=== PATIENT | female | born 1970 | race Caucasian/White ===

== ENCOUNTER → 2020-01-10 13:30 | Outpatient (CLI) | payer BC, SELFPAY ==
--- NOTE | ~2020-01-10 | XR_ITS ---
EXAMINATION: XR chest 2V EXAM DATE: 01/10/2020 13:43 INDICATION: Cough without fever. TECHNIQUE: Frontal and lateral projections of the chest obtained and reviewed. Comparison is made to prior examination from 10/09/2019. FINDINGS: Mild to moderate hyperinflation. The lungs are clear. There are no pleural effusions. The cardiomediastinal silhouette is within normal limits. There is no pneumothorax suspected. The bone s and soft tissues are unremarkable. There is no significant interval change. IMPRESSION: No acute cardiopulmonary findings. Reviewed, dictated and finalized at location A.
== END ==
PROVIDERS: PCP Family Medicine; Visit Provider Nurse Practitioner Family
DX: R05 Cough (principal)
CPT/HCPCS: 71046

== ENCOUNTER 2020-01-29 08:27 | Outpatient (CLI) | payer BC, SELFPAY ==
--- NOTE | 2020-01-29 13:33 | WPDPFTINT ---
PFT Interpretation PFT Interpretation: DOS: 01/29/2020 REQUESTING: Augusto Monterroso NP REASON FOR TESTING: Hyperinflation PULMONARY FUNCTION TESTS Results are reproducible. Spirometry: Normal FEV1 104% predicted, normal FVC 102% predicted, and normal FEV1%. No change with bronchodilator. Lung volumes: Total lung capacity normal, 93% predicted. Normal residual volume, 76%. RV/TLC 30%, normal. Airway resistance is increased at 235%. Diffusion: DLCO is 110%, normal. Flow volume loop: Normal. IMPRESSION: Normal pulmonary function tests with increase in airway resistance, which may or may not be clinically significant. Gricel Deng MD
== END 2020-01-29 08:28 | disposition home or self-care (01) ==
PROVIDERS: PCP Family Medicine; Visit Provider Nurse Practitioner Family
DX: R05 Cough (principal); R09.89 Other specified symptoms and signs involving the circulatory and respiratory systems
CPT/HCPCS: 94060; 94726; 94729

== ENCOUNTER 2020-02-02 07:52 | Outpatient (CLI) | payer BC, SELFPAY ==
--- NOTE | 2020-02-02 07:59 | ECG_ITS ---
Measurements Intervals [place] Rate: 72 P: 73 CA: 177 QRS: 3 QRSD: 89 T: 62 QT: 371 QTc: 408 Interpretive Statements SINUS RHYTHM POSSIBLE LEFT ATRIAL ENLARGEMENT INCOMPLETE RIGHT BUNDLE BRANCH BLOCK BORDERLINE ECG Electronically Signed On 02-02-2020 8:24:08 CDT by Lenny Matos D.O.
== END 2020-02-02 07:53 | disposition home or self-care (01) ==
PROVIDERS: PCP Family Medicine; Visit Provider Nurse Practitioner Family
DX: R07.89 Other chest pain (principal); I45.10 Unspecified right bundle-branch block
CPT/HCPCS: 93005

== ENCOUNTER 2020-02-09 08:34 | Outpatient (CLI) | payer BC, SELFPAY ==
--- NOTE | 2020-02-09 08:44 | ECHO_ITS ---
Patient Info Name: Ashtyn Mcmullen Age: 49 years : 1970 Gender: Female Ht: 73 in Wt: 160 lbs BSA: 1.93 m2 HR: 77 bpm BP: 125 / 73 mmHg Technical Quality: Good Exam Date: 02/09/2020 8:52 AM Exam Location: [facility] Patient Status: Outpatient Admit Date: 02/09/2020 Staff Ordering Physician: Amber Gutierrez NP Airport Baggage Screener: Nemo Warner RDCS Attending Provider: Augusto Monterroso NP Referring Physician: Brenda WELSH; Exam Type: CA echo doppler color flow Study Info Indications R94.31 - Abnormal electrocardiogram ECG EKG Complete two-dimensional, color flow and Doppler transthoracic echocardiogram is performed. Summary 1. Left ventricular chamber dimension is normal. 2. Left ventricular systolic function is normal, estimated at 60-65%. 3. The left ventricular diastolic function is normal. 4. E/e' 9 is minimally elevated. 5. No pulmonary hypertension, estimated pulmonary arterial systolic pressure is 28 mmHg. 6. There is trace pulmonic regurgitation. Left Ventricle E/e' 9 is minimally elevated. Left ventricular chamber dimension is normal. Left ventricular systolic function is normal, estimated at 60-65%. The left ventricular diastolic function is normal. Right Ventricle Right ventricular chamber dimension is normal. Right ventricular systolic function is normal. Left Atria Left atrial chamber dimension is normal. Right Atria Right atrial chamber dimension is normal. Aortic Valve The aortic valve is trileaflet. There is no aortic valve stenosis. There is no aortic valve regurgitation. Pulmonic Valve There is trace pulmonic regurgitation. Mitral Valve There is no mitral valve stenosis. There is no mitral valve regurgitation. Tricuspid Valve There is no tricuspid valve regurgitation. No pulmonary hypertension, estimated pulmonary arterial systolic pressure is 28 mmHg. Pericardium/Pleural There is no pericardial effusion. Inferior Vena Cava Normal inferior vena cava with >50% collapse upon inspiration consistent with normal right atrial pressure, 5 mmHg. Aorta The aortic root size at the sinus of Valsalva is normal. Left Ventricular Outflow Tract Name Value Normal LVOT 2D LVOT Diameter 1.9 cm LVOT Doppler LVOT Peak Velocity 110 cm/s LVOT Peak Gradient 5 mmHg LVOT Mean Gradient 3 mmHg LVOT VTI 24 cm LVOT VTI/AV VTI Ratio 1.0 LVOT Stroke Volume 67 ml LVOT CO 4.8 l/min LVOT CI 2.5 l/min/m2 Pulmonic Valve Name Value Normal RVOT Doppler RVOT Peak Gradient 3 mmHg PV Doppler
--- NOTE | 2020-02-09 08:44 | EST_ITS ---
Patient Info Name: Ashtyn Mcmullen Age: 49 years : 1970 Gender: Female Ht: 73 in Wt: 160 lbs BSA: 1.93 m2 Exam Date: 02/09/2020 9:16 AM Exam Location: [facility] Patient Status: Outpatient Admit Date: 02/09/2020 Staff Ordering Physician: Amber Gutierrez NP Attending Provider: Augusto Monterroso NP Exercise Technologist: eNmo Warner RDCS Exercise Physician: Lenny Matos DO Exam Type: CA stress test treadmill Study Info Indications R94.31 - Abnormal electrocardiogram ECG EKG A treadmill exercise stress test was performed. Summary 1. 1. Negative Konrad exercise stress test for ischemic ST changes by ECG criteria. 2. 2. Good functional capacity, achieving 10 METs of workload. 3. 3. Appropriate HR response to exercise. 4. 4. Appropriate HR recovery at 1 minute post exercise. 5. 5. No imaging with stress testing. 6. 6. Patient informed of the above results. Protocol: Konrad Stress ECG Details Stage: REST Duration (min): 3 min : 15 sec Speed (mph): 0.0 Grade (%): 0 HR (bpm): 72 SBP (mmHg): 125 DBP (mmHg): 73 METS: --- Stage: REST Duration (min): 13 min : 27 sec Speed (mph): 0.0 Grade (%): 0 HR (bpm): 76 SBP (mmHg): 125 DBP (mmHg): 73 METS: --- Stage: STAGE 1 Duration (min): 1 min : 0 sec Speed (mph): 1.7 Grade (%): 10 HR (bpm): 103 SBP (mmHg): 125 DBP (mmHg): 73 METS: --- Stage: STAGE 1 Duration (min): 2 min : 0 sec Speed (mph): 1.7 Grade (%): 10 HR (bpm): 112 SBP (mmHg): 125 DBP (mmHg): 73 METS: --- Stage: STAGE 1 Duration (min): 3 min : 0 sec Speed (mph): 1.7 Grade (%): 10 HR (bpm): 111 SBP (mmHg): 165 DBP (mmHg): 81 METS: --- Stage: STAGE 2 Duration (min): 1 min : 0 sec Speed (mph): 2.5 Grade (%): 12 HR (bpm): 123 SBP (mmHg): 165 DBP (mmHg): 81 METS: --- Stage: STAGE 2 Duration (min): 2 min : 0 sec Speed (mph): 2.5 Grade (%): 12 HR (bpm): 124 SBP (mmHg): 187 DBP (mmHg): 81 METS: --- Stage: STAGE 2 Duration (min): 3 min : 0 sec Speed (mph): 2.5 Grade (%): 12 HR (bpm): 126 SBP (mmHg): 187 DBP (mmHg): 81 METS: --- Stage: STAGE 3 Duration (min): 1 min : 0 sec Speed (mph): 3.4 Grade (%): 14 HR (bpm): 141 SBP (mmHg): 192 DBP (mmHg): 86 METS: --- Stage: STAGE 3 Duration (min): 2 min : 0 sec Speed (mph): 3.4 Grade (%): 14 HR (bpm): 147 SBP (mmHg): 192 DBP (mmHg): 86 METS: --- Stage: STAGE 3 Duration (min): 3 min : 0 sec Speed (mph): 3.4 Grade (%): 14 HR (bpm): 152 SBP (mmHg): 185 DBP (mmHg): 84 METS: --- Stage: RECOVERY Duration (min): 0 min : 59 sec Speed (mph): 0.0 Grade (%): 0 HR (bpm): 123 SBP (mmHg): 196 DBP (mmHg): 81 METS: --- Stage: RECOVERY Duration (min): 1 min
== END 2020-02-09 08:35 | disposition home or self-care (01) ==
PROVIDERS: PCP Family Medicine; Visit Provider Nurse Practitioner Family
DX: R94.31 Abnormal electrocardiogram [ECG] [EKG] (principal)
CPT/HCPCS: 93017; 93306

== ENCOUNTER 2020-03-28 09:17 | Emergency (ER) | payer BC, SELFPAY ==
[2020-03-28 09:36] VITALS: BP 137/89; PULSE 76; RESP 16; TEMP 37.2; O2SAT 99
--- NOTE | 2020-03-28 09:37 | ED.GENADULT ---
HPI - General Adult General Chief complaint: Wound/Laceration Stated complaint: laceration left thumb Time Seen by Provider: 03/28/20 09:43 Source: patient and RN notes reviewed Mode of arrival: ambulatory Limitations: no limitations History of Present Illness HPI narrative: 49-year-old female present with complaints of laceration to 1st (thumb) finger on left hand, caused by a piece of landscape glass from a bulb that busted in her hand 12 hours ago. Cleaned area and applied pressure, unable to control bleeding this morning. Denies focal weakness, altered sensation, and rash. RIGHT HAND is dominant hand. Denies pain, numbness or tingling, or loss of mobility. No foreign body sensation. Tetanus up-to-date. Post menopausal. The patient reports she have not been diagnosed with COVID-19. The patient reports she is not waiting for the results of a COVID-19 lab test. The patient reports she do not have fever, chills, weakness, fatigue, myalgia, or facial swelling. The patient reports she do not have a new or worsening cough or shortness of breath. Denies chest pain. The patient reports she do not have any rhinorrhea, congestion, sore throat, nausea, vomiting, abdominal pain, and diarrhea. Tolerating po intake well. Denies recent traveling. Denies concerns for COVID-19 or exposures been home since [id number] order except for essential household needs and return home. At this time, patient is not suspected of having COVID-19. Some parts of this dictation were generated by voice recognition software and may contain typographical and/or grammatical inaccuracies Related Data Home Medications Medication Instructions Recorded Confirmed estradiol 1 mg PO DAILY 03/28/20 03/28/20 medroxyprogesterone 1 mg PO DAILY 03/28/20 03/28/20 Allergies Allergy/AdvReac Type Severity Reaction Status Date / Time No Known Allergies Allergy Verified 03/28/20 09:45 Review of Systems Review of Systems: Narrative: CONSTITUTIONAL: Denies fever, chills, sweats. EYES: Denies visual changes, redness, discharge. ENT: Denies rhinorrhea, congestion, sore throat, otalgia. CARDIOVASCULAR: Denies chest pain, palpitations, edema. RESPIRATORY: Denies dyspnea, wheezing, cough. GASTROINTESTINAL: Denies abdominal pain, nausea, vomiting, or diarrhea. GENITOURINARY: Denies dysuria, hematuria, abnormal discharge. SKIN: Denies rash or itching. Complains of laceration to 1st (thumb) finger on left hand. MUSCULOSKELETAL: Denies acute back pain, joint pain, or myalgia. NEUROLOGIC: Denies numbness or focal weakness. PSYCHIATRIC: Denies anxiety or depression. All other systems reviewed & are unremarkable except as noted in HPI and below. [facility] Past Medical History Medical History (Updated 03/29/20 @ 00:01 by Lesley Mueller) Hx of migraines Lateral epicondylitis Sinusitis Toe fracture, left Surgical History Surgical History History of tonsillectomy Family History Family History Grandparent Family history of heart disease in male family member before age 55 Other Diabetes mellitus Social History Social History (Updated 03/28/20 @ 10:17 by ARRON Bonds) Smoking status: Former smoker Tobacco type: cigarettes Second hand tobacco smoke exposure: No Additional smoking assessment comments: Smoked for approximately a year while in high school per Ashtyn Alcohol intake: current Substance use: never Living arrangements: with family Occupation/Education: occupation Gender identity (if verbalized by the patient): Female Comments At time of signature, agree with nurse past medical, surgical, social, and family history. There is no relevant family history pertinent to the presenting complaint. Exam Narrative: Exam Narrative: GENERAL: This is a well-nourished, well-developed patient, in no apparent distres
== END 2020-03-28 10:25 | disposition home or self-care (01) ==
PROVIDERS: Emergency Provider Nurse Practitioner Family; PCP Family Medicine
DX: S61.012A Laceration without foreign body of left thumb without damage to nail, initial encounter (principal); Z87.891 Personal history of nicotine dependence; W25.XXXA Contact with sharp glass, initial encounter
CPT/HCPCS: 12001; 99213; G0463

== ENCOUNTER 2021-08-07 07:44 | Emergency (ER) | payer BC, SELFPAY ==
--- NOTE | ~2021-08-07 | XR_ITS ---
EXAMINATION: XR chest 2V EXAM DATE: 08/07/2021 08:34 INDICATION: Chest pain. TECHNIQUE: Frontal and lateral projections of the chest obtained and reviewed. Comparison is made to prior examination from 01/10/2020. FINDINGS: Mild hyperinflation. The lungs are clear. There are no pleural effusions. The cardiomedia stinal silhouette is within normal limits. There is no pneumothorax suspected. The bones and soft t issues are unremarkable. IMPRESSION: Mild hyperinflation. No acute cardiopulmonary findings. Reviewed, dictated and finalized at location A.
--- NOTE | 2021-08-07 08:04 | ECG_ITS ---
Measurements Intervals [place] Rate: 75 P: -16 CT: 181 QRS: -9 QRSD: 89 T: 52 QT: 357 QTc: 401 Interpretive Statements SINUS RHYTHM INCOMPLETE RIGHT BUNDLE BRANCH BLOCK BASELINE WANDER- AVF BORDERLINE ECG Electronically Signed On 08-07-2021 8:35:24 CDT by Lenny Matos D.O.
[2021-08-07 08:12] VITALS: BP 138/92; RESP 12; O2SAT 97
[2021-08-07 08:16] VITALS: PULSE 71
--- NOTE | 2021-08-07 08:23 | PC.NURSE ---
pt. to Xray
[2021-08-07 08:38] LABS: INR 0.9; Prothrombin Time 12.3 Seconds (11.1-14.7)
[2021-08-07 08:39] LABS: Partial Thromboplastin Time 26.4 SECONDS (22.3-36.8)
[2021-08-07] MEDS: ASPIRIN 81 MG CHEWABLE TABLET 324 MG PO (08:40)
[2021-08-07 08:48] LABS: Anion Gap 9 mmol/L (8-16); Blood Urea Nitrogen 12 mg/dL (7-17); Calcium 8.5 mg/dL (8.4-10.2); Carbon Dioxide 24 mmol/L (22-30); Chloride 108 mmol/L (98-107); Estimated CRCL calculation 73 ml/min; Estimated Glomerular Filt Rate > 60; Glucose 82 mg/dL (65-110); Potassium 3.9 mmol/L (3.4-5.0); Sodium 141 mmol/L (137-145)
[2021-08-07 08:49] LABS: Basophils Percent Auto 0.4 % (0.2-1.2); Eosinophils Absolute Auto 0.1 K/mm3 (0-0.3); Eosinophils Percent Auto 2.8 % (0-4.4); Hematocrit 41.8 % (37.0-47.0); Lymphocytes Absolute Auto 1.21 K/mm3 (0.9-3.2); Lymphocytes Percent Auto 43.1 % (18.3-44.2); Mean Corpuscular HGB Conc 33.5 g/dl (32-36); Mean Corpuscular Hemoglobin 30.4 pg (26-34); Mean Corpuscular Volume 90.9 fl (80-100); Mean Platelet Volume 10.9 fl (7.4-10.4); Monocytes Absolute Auto 0.3 K/mm3 (0.1-0.6); Monocytes Percent Auto 12.1 % (2.6-8.5); Neutrophils Absolute Auto 1.2 K/mm3 (1.3-6.7); Neutrophils Percent Auto 41.6 % (45.5-73.1); Platelet Count Result 148 k/mm3 (150-375); Red Cell Distribution Width 12.1 % (11.5-14.5); White Blood Count 2.8 K/mm3 (4.5-10.0)
--- NOTE | 2021-08-07 08:55 | ED.CHESTPAIN ---
HPI - Chest Pain General Chief Complaint: Chest Pain Stated Complaint: chest tightness Time Seen by Provider: 08/07/21 08:06 Source: patient History of Present Illness HPI narrative: Patient presents with chest pain. She reports has had chest pain for approximately 1 week she discussed her symptoms with her friends and they recommend she come in to be evaluated. Her pain is achy, constant, no clear aggravating or alleviating factors. She reports shortness of breath described as difficulty taking a deep breath she denies nausea or vomiting she denies diaphoresis. She denies any radiation of her pain. Her pain is primarily around her sternum. She denies any recent hospitalizations, recent travel, prior history of blood clots. Related Data Home Medications Medication Instructions Recorded Confirmed estradiol 1 mg PO DAILY 03/28/20 03/31/21 medroxyprogesterone 1 mg PO DAILY 03/28/20 03/31/21 Allergies Allergy/AdvReac Type Severity Reaction Status Date / Time No Known Allergies Allergy Verified 10/01/20 16:07 [facility] Past Medical History Medical History (Updated 08/07/21 @ 11:13 by Phil Hamlin MD) BMI 21.0-21.9, adult Hearing loss Hx of migraines Lateral epicondylitis Sinusitis Toe fracture, left Surgical History Surgical History History of tonsillectomy Family History Family History Grandparent Family history of heart disease in male family member before age 55 Father , MVC No problems noted. Mother Hypertension Pacemaker Sibling No problems noted. Other Diabetes mellitus Social History Social History Tobacco type: cigarettes Second hand tobacco smoke exposure: No Additional smoking assessment comments: Smoked for approximately a year while in high school per Ashtyn Alcohol intake: current Substance use: never Gender identity (if verbalized by the patient): Female Course Reevaluation(s) Reevaluation #1: Patient reports feeling improved, labs reviewed patient comfortable with outpatient plan. Date: 08/07/21 Time: 11:06 Vital Signs Vital signs: Vital Signs Respiratory Rate 12 08/07/21 08:12 Blood Pressure 138/92 H 08/07/21 08:12 Pulse Oximetry 97 08/07/21 08:12 Pulse Rate 64 08/07/21 11:28 Respiratory Rate 12 08/07/21 11:28 Blood Pressure 123/106 H 08/07/21 11:28 Pulse Oximetry 100 08/07/21 11:28 MDM - Chest Pain MDM Narrative Medical decision making narrative: H&P as above, vss, pt looks clinically well, exam reassuring, labs with low WBCs otherwise clinically unremarkable with a negative troponin given and 1 week of consistent symptoms, img unremarkable, additional labs/img considered, symptomatic relief available as needed, on reevaluation pt continues to looks clinically well. Suspect chest wall pain, dns ACS, severe sepsis, PE, dissection. plan to tx/monitor as op w/ pcm f/u findings/plan discussed with pt, pt agree/comfortable with plan, return precautions given Medical Records Data Medical records narrative: Impressions Chest X-Ray 08/07/21 08:41 IMPRESSION: Mild hyperinflation. No acute cardiopulmonary findings. Lab Data Result diagrams: 08/07/21 08:18 08/07/21 08:18 Labs: Lab Results 08/07/21 08/07/21 08/07/21 Range/Units 08:18 08:18 08:18 WBC 2.8 L (4.5-10.0) K/mm3 RBC 4.60 (4.2-5.4) M/mm3 Hgb 14.0 (12.0-15.0) g/dL Hct 41.8 (37.0-47.0) % MCV 90.9 (80-100) fl MCH 30.4 (26-34) pg MCHC 33.5 (32-36) g/dl RDW 12.1 (11.5-14.5) % Plt Count 148 L (150-375) k/mm3 MPV 10.9 H (7.4-10.4) fl Immature Gran % (Auto) 0.0 (0-0.5) % Neut % (Auto) 41.6 L (45.5-73.1) % Lymph % (Auto) 43.1 (18.3-44.2) % Rogers % (Auto) 12.1 H (2.6-8.5) %
[2021-08-07 08:58] LABS: Troponin I < 0.012 ng/mL (0.000-0.034)
[2021-08-07 09:00] VITALS: BP 134/97; PULSE 66; RESP 14; O2SAT 98
[2021-08-07 10:00] VITALS: BP 140/100; PULSE 66; PULSE 68; RESP 14; O2SAT 98
[2021-08-07 10:27] LABS: D Dimer 0.27 ug/mL (<0.48)
[2021-08-07 11:28] VITALS: BP 123/106; PULSE 64; RESP 12; O2SAT 100
--- NOTE | 2021-08-20 11:18 | PC.NURSE ---
LATE ENTRY This note is being entered to document information to the patient's record. The following information was omitted on [08/07/2021], by [Jaylyn Denson RN]. Stop time for Acetaminophen IVPB was 1130am.
== END 2021-08-07 11:29 | disposition home or self-care (01) ==
PROVIDERS: Emergency Provider Emergency Medicine; PCP Family Medicine
DX: R07.9 Chest pain, unspecified (principal); I45.10 Unspecified right bundle-branch block
CPT/HCPCS: 36415; 71046; 80048; 84484; 85025; 85380; 85610; 85730; 93005; 96365; 99284; A9270; J0131

== ENCOUNTER → 2022-09-25 08:00 | Outpatient (CLI) | payer OTHER, SELFPAY ==
--- NOTE | ~2022-09-25 | XR_ITS ---
XR chest 2V DATE: 09/25/2022 08:13 INDICATION: Cough and shortness of breath for 5 days TECHNIQUE: 2 views COMPARISON: 08/07/2021 2 view chest FINDINGS: Bilateral hyperinflation. No pulmonary infiltrate or consolidation, pleural effusion or pul monary vascular congestion or pneumothorax is detected. Normal heart size. No hilar or mediastinal enlargement. Included skeletal structures are unremarkable . IMPRESSION: Bilateral hyperinflation suggesting obstructive airways disease No active cardiopulmonary disease Reviewed, dictated and finalized at location B. TIME ANALYST
== END ==
PROVIDERS: PCP Family Medicine; Visit Provider Nurse Practitioner Family
DX: R05.9 Cough, unspecified (principal); R06.02 Shortness of breath; R91.8 Other nonspecific abnormal finding of lung field
CPT/HCPCS: 71046

== ENCOUNTER → 2023-01-29 11:34 | Outpatient (CLI) | payer OTHER, SELFPAY ==
--- NOTE | ~2023-01-29 | XR_ITS ---
XR hip BI 2V w AP pelvis DATE: 01/29/2023 11:59 INDICATION: Bilateral hip pain TECHNIQUE: AP pelvis. AP and lateral views of each hip. COMPARISON: None FINDINGS: No pelvic fracture or bone destruction is detected. The pubic symphysis and sacroiliac join ts are intact. Hip joint spaces are symmetric and relatively preserved. There is minimal spurring of both femoral he ads consistent with mild bilateral hip osteoarthritis. No fracture or dislocation, avascular necrosis or bone destruction of either hip is detected. IMPRESSION: Mild bilateral hip osteoarthritis Reviewed, dictated and finalized at location A.
== END ==
PROVIDERS: PCP Family Medicine; Visit Provider Physician Assistant Medical
DX: M16.0 Bilateral primary osteoarthritis of hip (principal)
CPT/HCPCS: 73521

== ENCOUNTER 2023-12-05 10:13 | Emergency (ER) | payer OTHER, SELFPAY ==
[2023-12-05 10:17] VITALS: BP 168/90; PULSE 96; RESP 18; TEMP 36.8; O2SAT 100
[2023-12-05 10:57] VITALS: O2SAT 98
[2023-12-05 11:09] LABS: Influenza A QL RT-PCR Negative (Negative); Influenza B QL RT-PCR Negative (Negative); RSV RNA, RT-PCR Negative (Negative); SARS-CoV-2 RNA PCR Positive (Negative)
[2023-12-05 11:37] VITALS: BP 151/93; PULSE 88; RESP 18; O2SAT 98
--- NOTE | 2023-12-05 11:45 | ED.URI ---
HPI - URI/Sore Throat General Chief Complaint: Upper Respiratory Infection Stated Complaint: Congestion Time Seen by Provider: 12/05/23 10:37 Source: patient Mode of arrival: ambulatory Limitations: no limitations History of Present Illness HPI Narrative: This is a 53-year-old female that presents to the emergency department for cold symptoms present over the last 3 days. Reports cough, congestion, and headache. Reports history of migraines. She is COVID vaccinated. Denies fevers or shortness of breath. Related Data Home Medications Medication Instructions Recorded Confirmed estradiol 2 mg tablet 1 mg PO DAILY 03/28/20 12/05/23 medroxyprogesterone 2.5 mg tablet 1 mg PO DAILY 03/28/20 12/05/23 Allergies Allergy/AdvReac Type Severity Reaction Status Date / Time No Known Allergies Allergy Verified 12/05/23 10:59 Review of Systems Review of Systems: CONSTITUTIONAL: Denies fever ENT: Reports rhinorrhea, congestion RESPIRATORY: Reports cough. Denies dyspnea. All systems reviewed & are unremarkable except as noted in HPI and below PMFSH Past Medical History Medical History BMI 21.0-21.9, adult Hearing loss Hx of migraines Lateral epicondylitis Raynaud's disease Sinusitis Toe fracture, left Surgical History Surgical History History of tonsillectomy Family History Family History Grandparent Family history of heart disease in male family member before age 55 Father , MVC No problems noted. Mother Hypertension Pacemaker Sibling No problems noted. Other Diabetes mellitus Social History Social History Smoking status: Never smoker Tobacco type: cigarettes Second hand tobacco smoke exposure: No Additional smoking assessment comments: Smoked for approximately a year while in high school per Ashtyn Alcohol intake: current Substance use: never Substance use type: does not use Living arrangements: with family Occupation/Education: occupation Additional occupation/education comments: teacher-[employer] Gender identity (if verbalized by the patient): Female Exam Narrative: GENERAL: Well-appearing, well-nourished, and in no acute distress. HEAD: Normocephalic, atraumatic. EYES: PERRLA and EOMI. ENT: Nares clear, no rhinorrhea or epistaxis. Mucous membranes moist. Oropharynx without tonsillar hypertrophy exudate or other lesions. Bilateral TMs pearly donaldson non-bulging NECK: Supple. No adenopathy or masses. CHEST: Clear to auscultation. No respiratory distress. No wheezes rales or rhonchi HEART: Regular rate and rhythm. No murmur heard. Normal peripheral pulses. EXTREMITIES: Normal range of motion. No edema. SKIN: Warm, dry, no rash. NEURO: No focal deficits. Alert and oriented x3. PSYCH: Normal mood and affect Course Course Emergency Course: Patient agrees with plan of care Vital Signs Vital signs: Vital Signs Temperature 98.2 F 12/05/23 10:17 Pulse Rate 96 12/05/23 10:17 Respiratory Rate 18 12/05/23 10:17 Blood Pressure 168/90 H 12/05/23 10:17 Pulse Oximetry 100 12/05/23 10:17 Oxygen Delivery Room Air 12/05/23 10:17 Temperature 98.2 F 12/05/23 10:17 Pulse Rate 88 12/05/23 11:37 Respiratory Rate 18 12/05/23 11:37 Blood Pressure 151/93 H 12/05/23 11:37 Pulse Oximetry 98 12/05/23 11:37 Oxygen Delivery Room Air 12/05/23 10:57 MDM - URI/Sore Throat MDM Narrative Medical decision making narrative: Patient presents to the emergency department for cold symptoms present over the last couple of days. She is afebrile and nontoxic appearing. Oxygen saturation is normal on room air. Lungs are clear on exam. Patient is COVID positive today. No concerning findings on her blood
[2023-12-05] MEDS: ACETAMINOPHEN 500 MG TABLET 1000 MG PO (11:51)
[2023-12-05] MEDS: METOCLOPRAMIDE HCL 10 MG TABLET PO (11:51)
[2023-12-05] MEDS: diphenhydrAMINE HCl CAP 25 MG CAPSULE PO (11:51)
[2023-12-05] MEDS: KETOROLAC 30 MG/ML VIAL (*BKC) IM (11:51)
[2023-12-05 12:12] LABS: Basophils Percent Auto 0.3 % (0.2-1.2); Eosinophils Percent Auto 0.3 % (0-4.4); Hematocrit 44.2 % (37.0-47.0); Hemoglobin 14.9 g/dL (12.0-15.0); Lymphocytes Percent Auto 20.9 % (18.3-44.2); Mean Corpuscular HGB Conc 33.7 g/dl (32-36); Mean Corpuscular Volume 89.1 fl (80-100); Mean Platelet Volume 10.1 fl (7.4-10.4); Monocytes Absolute Auto 0.4 K/mm3 (0.1-0.6); Monocytes Percent Auto 11.6 % (2.6-8.5); Neutrophils Absolute Auto 2.2 K/mm3 (1.3-6.7); Neutrophils Percent Auto 66.9 % (45.5-73.1); Platelet Count Result 128 k/mm3 (150-375); Red Blood Count 4.96 M/mm3 (4.2-5.4); Red Cell Distribution Width 11.9 % (11.5-14.5); White Blood Count 3.4 K/mm3 (4.5-10.0)
[2023-12-05 12:20] LABS: Alanine Aminotransferase 15 U/L (6-35); Albumin Level 4.5 g/dL (3.5-5.1); Alkaline Phosphatase 81 U/L (38-126); Anion Gap 7 mmol/L (8-16); Aspartate Amino Transferase 32 U/L (14-36); Bilirubin,Total 1.1 mg/dL (0.2-1.3); Blood Urea Nitrogen 11 mg/dL (7-17); Calcium 8.6 mg/dL (8.4-10.2); Carbon Dioxide 27 mmol/L (22-30); Chloride 105 mmol/L (98-107); Estimated Glomerular Filt Rate > 60; Glucose 92 mg/dL (65-110); Potassium 3.9 mmol/L (3.4-5.0); Sodium 139 mmol/L (137-145)
== END 2023-12-05 13:06 | disposition home or self-care (01) ==
PROVIDERS: Emergency Medicine; Emergency Provider Physician Assistant; PCP Family Medicine
DX: U07.1 COVID-19 (principal); I73.00 Raynaud's syndrome without gangrene; Z87.891 Personal history of nicotine dependence
CPT/HCPCS: 36415; 80053; 85025; 87637; 96372; 99283; A9270; J1885

== ENCOUNTER 2025-01-07 | Emergency (ER) | payer BC, SELFPAY ==
--- OUTSIDE RECORDS SUMMARY | 2025-01-07 00:03 | XMS_ITS | Clinical Summary ---
Author Organization [facility] [employer] Address [address] [place] [address] Care Team Providers Care Telecommunications Project Manager Name Role Phone Matthew Obando MD Primary Care Provider [phone] Source Comments [facility] [employer],non-owned Affiliates and Associated Physician Practices is amultiple site organization consisting of ambulatory clinics and hospital sitesin [place], [place], [place] and [place]. This disclosure is being madepursuant to the Care Everywhere program and may not contain all information available regarding this patient. Last updated 18.[employer] Allergies No known active allergies Medications * Be aware that medications may not be up to date on this document. Alwaysverify current medications with the patient. Medication Sig Dispensed Refills Start Date End Date Status ESTRADIOL PO Active PROGESTERONE PO Active benzonatate (TESSALON) 200 MG capsule Take 1 capsule by mouth 3 times daily as needed for Cough 30 capsule 12/20/2019 Active Social History Tobacco Use Types Packs/Day Years Used Date Smoking Tobacco: Never Smokeless Tobacco: Never Sex and Gender Information Value Date Recorded Sex Assigned at Not on file Gender Identity Not on file Sexual Orientation Not on file Last Filed Vital Signs Vital Sign Reading Time Taken Comments Blood Pressure 128/86 12/20/2019 4:[address] CLEANER Pulse 87 12/20/2019 4:[address] CLEANER Temperature 36.9 C (98.5 F) 12/20/2019 4:[address] CLEANER Respiratory Rate 16 12/20/2019 4:[address] CLEANER Oxygen Saturation 98% 12/20/2019 4:[address] CLEANER Inhaled Oxygen Concentration - - Weight 72.6 kg (160 lb) 12/20/2019 4:[address] CLEANER Height 185.4 cm (6' 1 ) 12/20/2019 4:[address] CLEANER Body Mass Index 21.11 12/20/2019 4:[address] CLEANER Plan of Treatment Health Maintenance Due Date Last Done Comments COLOGUARD (AGES 45-75) - COL ON CA SCREENING 1970 COLON MONITORING 1969 COLONOSCOPY - COLON CA SCREENING 1969 CT COLONOGRAPHY - COLON CA SCREENING 1970 Colorectal Cancer Screening 1970 FIT - COLON CA SCREENING 1970 FLEX SIG - COLON CA SCREENING 1970 LIPID TESTING 1970 MAMMOGRAM 1970 PAP SMEAR 1969 HIV SCREENING 1984 HEPATITIS C SCREENING 05/18/1987 DTAP/TDAP/TD VACCINES (1 - Tdap) 1988 HEPATITIS B VACCINE (1 of 3 - 19+ 3-dose series) 1988 PNEUMOCOCCAL VACCINE 50+ (1 of 1 - PCV) 2019 ZOSTER VACCINE (1 of 2) 2019 COVID-19 VACCINE (1 - 2023-2 5 season) 2024 INFLUENZA VACCINE (#1) 2024 DEPRESSION SCREENING 10/25/2024 HIB VACCINE Aged Out No longer eligi ble based on patient's age to complete this topic HPV VACCINE Aged Out No longer eligi ble based on patient's age to complete this topic MENINGOCOCCAL (Group B) VACC INE SHARED DECISION-MAKING Aged Out No longer eligibl e based on patient's age to complete this topic MENINGOCOCCAL GROUPS A/C/Y/W VACCINE Aged Out No longer eligible b ased on patient's age to complete this topic PNEUMOCOCCAL VACCINE Aged Out No long er eligible based on patient's age to complete this topic Care Teams Telecommunications Project Manager Relationship Specialty Start Date End Date Matthew Obando MD [address] [place] [address] PCP - General Family Medicine 12/20/19
--- OUTSIDE RECORDS SUMMARY | 2025-01-07 00:03 | XMS_ITS | Patient Health Summary ---
Author Organization [facility] [employer] Address [address] [place] [address] Care Team Providers Care Parasitology Teacher Name Role Phone Matthew Obando MD Primary Care Provider [phone] Note from [facility],non-owned Affiliates and Associated Physician Practices is amultiple site organization consisting of ambulatory clinics and hospital sitesin [place], [place], [place] and [place]. This disclosure is being madepursuant to the Care Everywhere program and may not contain all information available regarding this patient. Last updated 18.[facility] [employer] Allergies No known active allergies Medications * Be aware that medications may not be up to date on this document. Alwaysverify current medications with the patient. * ESTRADIOL PO * PROGESTERONE PO * benzonatate (TESSALON) 200 MG capsule(Started 12/20/2019) Take 1 capsule by mouth 3 times daily as needed for Cough Social History Tobacco Use Types Packs/Day Years Used Date Smoking Tobacco: Never Smokeless Tobacco: Never Sex and Gender Information Value Date Recorded Sex Assigned at Not on file Gender Identity Not on file Sexual Orientation Not on file Last Filed Vital Signs Vital Sign Reading Time Taken Comments Blood Pressure 128/86 12/20/2019 4:33 PM RETORT FIREMAN Pulse 87 12/20/2019 4:33 PM RETORT FIREMAN Temperature 36.9 C (98.5 F) 12/20/2019 4:33 PM RETORT FIREMAN Respiratory Rate 16 12/20/2019 4:33 PM RETORT FIREMAN Oxygen Saturation 98% 12/20/2019 4:33 PM RETORT FIREMAN Inhaled Oxygen Concentration - - Weight 72.6 kg (160 lb) 12/20/2019 4:33 PM RETORT FIREMAN Height 185.4 cm (6' 1 ) 12/20/2019 4:33 PM RETORT FIREMAN Body Mass Index 21.11 12/20/2019 4:33 PM RETORT FIREMAN Procedures * INFLUENZA A+B - POINT OF CARE (AMB)(Performed 12/20/2019) Performed for Upper respiratory tract infection, unspecified type * STREP A SCREEN - POINT OF CARE (AMB) STL(Performed 12/20/2019) Performed for Upper respiratory tract infection, unspecified type Results * INFLUENZA A+B - POINT OF CARE (AMB) (12/20/2019 4:47 PM RETORT FIREMAN) Influenza A Antigen Rapid Negative Negative Influenza B Antigen Rapid Negative Negative Influenza Internal Control present NEGATIVE - POSITIVE Influenza Lot Number [id number] Influenza Expiration Date 09 29 2021 Other NASOPHARYNGEAL SWAB / Unknown 12/20/2019 4:47 PM RETORT FIREMAN [place] APRN-[facility] - POINT OF [place] RE ORDERABLES * STREP A SCREEN - POINT OF CARE (AMB) STL (12/20/2019 4:46 PM RETORT FIREMAN) Strep A Rapid POCT Negative Negative Strep A Internal Control Present Lot # [id number] Expiration Date 06 24 2021 Throat ENTIRE THROAT (SURFACE REGION OF NECK) / Unknown 12/20/2019 4:46 PM RETORT FIREMAN [place] APRN-[facility] - POINT OF [place] RE ORDERABLES Care Teams Parasitology Teacher Relationship Specialty Start Date End Date Matthew Obando MD [address] [place] [address] PCP - General Family Medicine 12/20/19
--- OUTSIDE RECORDS SUMMARY | 2025-01-07 00:03 | XMS_ITS | Referral Summary ---
Author Organization [facility] [employer] Address [address] [place] [address] Care Team Providers Care Automatic Glove Former Name Role Phone Matthew Obando MD Primary Care Provider [phone] Source Comments [facility] [employer]),non-owned Affiliates and Associated Physician Practices is amultiple site organization consisting of ambulatory clinics and hospital sitesin [place], [place], [place] and [place]. This disclosure is being madepursuant to the Care Everywhere program and may not contain all information available regarding this patient. Last updated 18.[employer] Allergies No known active allergies Medications * [...] Comments Blood Pressure 128/86 12/20/2019 4:33 PM WATERPROOF COATING MACHINE TENDER Pulse 87 12/20/2019 4:33 PM WATERPROOF COATING MACHINE TENDER Temperature 36.9 C (98.5 F) 12/20/2019 4:33 PM WATERPROOF COATING MACHINE TENDER Respiratory Rate 16 12/20/2019 4:33 PM WATERPROOF COATING MACHINE TENDER Oxygen Saturation 98% 12/20/2019 4:33 PM WATERPROOF COATING MACHINE TENDER Inhaled Oxygen Concentration - - Weight 72.6 kg (160 lb) 12/20/2019 4:33 PM WATERPROOF COATING MACHINE TENDER Height 185.4 cm (6' 1 ) 12/20/2019 4:33 PM WATERPROOF COATING MACHINE TENDER Body Mass Index 21.11 12/20/2019 4:33 PM WATERPROOF COATING MACHINE TENDER Plan of Treatment Not on file Care Teams Automatic Glove Former Relationship Specialty Start Date End Date Matthew Obando MD [address] [place] [address] PCP - General Family Medicine 12/20/19
--- OUTSIDE RECORDS SUMMARY | 2025-01-07 00:03 | XMS_ITS | Referral Summary ---
Author Organization [facility] Address [address] [address] Care Team Providers Care Supervisor Plastics Name Role Phone Matthew Obando MD Primary Care Provider [phone] Allergies No known active allergies Medications ibuprofen (ADVIL,MOTRIN) 600 mg tablet Take 600 mg by mouth every 6 (six) hours as needed for pain. Active HYDROcodone-acetami nophen (NORCO) 5-325 mg per tabletIndications:P ain Take 1-2 tablets by mouth every 4 (four) hours as needed for pain (1 tablet for mild to moderate pain or 2 tablets for severe pain). Do not exceed 8 tablets/day. 12 tablet 8 Active cyclobenzaprine (FLEXERIL) 10 mg tablet TK 1 T PO Q 8 H PRF MUSCLE ACHES/SPASMS . MAY CUT T IN HALF IF TOO SEDATING 0 8 Active ondansetron ODT (ZOFRAN-ODT) 4 mg disintegrating tablet DIS 1 T ON TONGUE Q 6 H PRN NV 0 8 Active predniSONE (DELTASONE) 10 mg tablet TK 3 TS PO D 0 8 Active traMADol (ULTRAM) 50 mg tablet TK 1 T PO Q 6 H PRN 0 8 Active Social History Tobacco Use Types Packs/Day Years Used Date Smoking Tobacco: Never Alcohol Use Standard Drinks/Week Comments Yes 0 (1 standard drink = 0.6 oz pur e alcohol) rare Personal Safety Answer Date Recorded Getting School Help Needed Not on file 01/07 Comments No Sex and Gender Information Value Date Recorded Sex Assigned at Not on file Legal Sex Female 7:47 PM HORSE WRANGLER Gender Identity Not on file Sexual Orientation Not on file Last Filed Vital Signs Vital Sign Reading Time Taken Comments Blood Pressure 137/67 08/15/2018 1:52 PM CDT Pulse 72 08/15/2018 1:52 PM CDT Temperature 36.6 C (97.9 F) 08/15/2018 10:14 AM CDT Respiratory Rate 16 08/15/2018 1:52 PM CDT Oxygen Saturation 98% 08/15/2018 1:52 PM CDT Inhaled Oxygen Concentration - - Weight 72.6 kg (160 lb) 08/15/2018 10:14 AM CDT Height 185.4 cm (6' 1 ) 08/15/2018 10:14 AM CDT Body Mass Index 21.11 08/15/2018 10:14 AM CDT Plan of Treatment Not on file Procedures Procedure Name Priority Date/Time Associated Diagnosis Comments SCREENING MAMMOGRAM BILATERAL W CAM Schedule Routine, Read Routine (OP Routine) 05/12/2024 10:08 AM CDT Screening mammogram, encounter for from Last 3 Months or Most Recently Relevant to Health Maintenance Results * Screening Mammogram Bilateral W Cam (05/12/2024 10:08 AM CDT) Anatomical Region Laterality Modality Breast Bilateral Mammography Impressions 05/12/2024 10:40 AM CDT BI-RADS ATLAS category (overall): 1 - Negative There is no mammographic evidence of malignancy. A 1 year screening mammogram is recommended. The patient has been or will be contacted. We recommend annual screening mammography for women at average risk of breast cancer beginning at age 40, based on guidelines of the [place] [employer] (ACR Practice Parameter for the Performance of Screening and Diagnostic Mammography) and [employer] Obstetricians [employer] Gynec[employer]. For women with and elevated risk of breast cancer, please refer to the ACR Practice Parameter for specific screening recommendations. The patient will be entered into a reminder system with a target due date of 1 year for her next screening exam. Narrative 05/12/2024 10:40 AM CDT Screening Mammogram Bilateral W Cam: 05/12/24 The study was acquired using full field digital technology and interpreted from soft copy. 2D digital mammographic views, as well as 3D digital tomosynthesis were performed in the CC and MLO projections. CLINICAL: Screening mammogram, encounter for No relevant medical history has been documented for this patient. No known family history of breast cancer. COMPARISONS: 05/03/2023 Screening Mammogram Bilateral W Cam 01/05/2022 Screening Mammogram Bilateral W Cam 04/15/2021 Diagnostic Mammogram Right W Cam 11/25/2020 Screening Mammogram 2D Bilateral BREAST TISSUE: The breasts are heterogeneously dense, which may obscure small masses. FINDINGS: No suspicious masses, suspicious calcifications, or other suspicious findings are seen within either breast. There has been no suspicious change. us Self Screening Mammogram IMG MAMMO PROCEDURES Fi nal Result from Last 3 Months or Most Recently Relevant to Health Maintenance Insurance [employer] [place] [employer] [place] Care Teams Supervisor Plastics Relationship Specialty Start Date End Date Matthew Obando MD PCP - General 08/12/19
--- OUTSIDE RECORDS SUMMARY | 2025-01-07 00:03 | XMS_ITS | Encounter Summary ---
Author Organization [facility] Address [address] [place] [address] Care Team Providers Care Cadd Operator Name Role Phone Unavailable Primary Care Provider Unavailabl e Encounter Details Date Type Department Care Team (Late st Contact Info) Description 07/08/2004 Inpatient Historical HIS MRI DEPT Louis Alexis Jr., MD [address] [place] [address] Mira Torres MD NO ADDRESS ON FILE FERTILITY TESTING (Primary Dx) Social History Tobacco Use Types Packs/Day Years Used Date Smoking Tobacco: Never Assessed Comments Unknown Sex and Gender Information Value Date Recorded Sex Assigned at Not on file Legal Sex Female 5:14 AM MANAGER STATE Gender Identity Not on file Sexual Orientation Not on file documented as of this encounter Plan of Treatment Not on file documented as of this encounter Visit Diagnoses Diagnosis Fertility testing- Primary documented in this encounter
--- OUTSIDE RECORDS SUMMARY | 2025-01-07 00:03 | XMS_ITS | Clinical Summary ---
Author Organization [facility] Address [address] Attn: Epic Prelude ADT [place] [address] Care Team Providers Care Title Agent Name Role Phone Unavailable Primary Care Provider Unavailabl e Social History Tobacco Use Types Packs/Day Years Used Date Smoking Tobacco: Never Assessed Comments Unknown Sex and Gender Information Value Date Recorded Sex Assigned at Not on file Legal Sex Female 5:14 AM BENCH REPAIR TECHNICIAN Gender Identity Not on file Sexual Orientation Not on file Plan of Treatment Health Maintenance Due Date Last Done Comments DTAP/TDAP/TD VACCINES (1 - Tdap) 1988 HEPATITIS B VACCINES (1 of 3 - 19+ 3-dose series) 1988 CERVICAL CANCER SCREENING 1999 BREAST CANCER SCREENING 2009 COLORECTAL SCREENING 2014 Colorectal Cancer Screening 2014 FIT-DNA Q 3 years 2014 FIT/FOBT Q 1 year 2014 Flex Sig/CT Colonography Q 5 years 2014 ZOSTER VACCINE (1 of 2) 2019 INFLUENZA VACCINE (#1) 2024 PNEUMOCOCCAL VACCINE 0-49 YEARS Aged Out No longer eligible based on patient's age to complete this topic
--- OUTSIDE RECORDS SUMMARY | 2025-01-07 00:03 | XMS_ITS | Clinical Summary ---
Author Organization [facility] Address [address] [address] Care Team Providers Care Sales Expert Home Theater Name Role Phone aMtthew Obando MD Primary Care Provider [phone] Allergies No known active allergies Medications ibuprofen [...] on file Legal Sex Female 7:47 PM TREATMENT MANAGER Gender Identity Not on file Sexual Orientation Not on file Obstetrics History Para Term AB IAB SAB Ectopic Multiple Livin g Live Births 2 2 2 Date Outcome GA Total Labor Labor/2nd/3rd Weight Sex Type Anes PTL Mesha A1 A5 Name Clin Term Term Last Filed Vital Signs Vital Sign Reading [...] 08/15/2018 10:14 AM CDT Plan of Treatment Health Maintenance Due Date Last Done Comments Cervical Cancer Screening 1969 Colon Cancer Screening-Colonoscopy 1969 Depression Screening 1969 Hepatitis C Screening 1969 Hepatitis B Screening 1987 Regular Well Visit/Exam 18-64 1987 Zoster Vaccine (1 of 2) 2019 Influenza Vaccine (#1) 2024 Breast Cancer Screening-Mammogram 05/12/2025 05/12/2024, 05/03/2023, 01/05/2022, Additional history exists DTaP/Tdap/Td Vaccine (2 - Td or Tdap) 11/09/2029 11/09/2019 Pneumococcal vaccine <65 Aged Out No longer eligible based on patient's age to complete this topic Procedures Procedure Name Priority Date/Time Associated Diagnosis [...] age 40, based on guidelines of the [employer] (ACR Practice Parameter for the Performance of Screening and Diagnostic Mammography) and [employer]ians [employer] Gynecologists. For women [...] Most Recently Relevant to Health Maintenance Insurance [facility] Care Teams Sales Expert Home Theater Relationship Specialty Start Date End Date Matthew Obando MD PCP - General 08/12/19
[2025-01-07 00:17] VITALS: BP 147/88; PULSE 98; RESP 18; TEMP 36.4; O2SAT 100
--- NOTE | 2025-01-07 02:50 | PC.NURSE ---
Patient up to triage from room to state, I am going home this is ridiculous. No one is around to help me. . this rn explained the risks of leaving prior to seeing provider. pt was able to ambulate with a steady unassisted gait.
--- OUTSIDE RECORDS SUMMARY | 2025-01-07 02:54 | XMS_ITS | Referral Summary ---
Author Organization [facility] [employer] Address [address] [place] [address] Care Team Providers Care Tear Down Man Name Role Phone Matthew Obando MD Primary Care Provider [phone] Source Comments [facility] [employer],non-owned Affiliates and Associated Physician Practices is amultiple site organization consisting of ambulatory clinics and hospital sitesin [place], [place], [place] and [place]. This disclosure is being madepursuant to the Care Everywhere program and may not contain all information available regarding this patient. Last updated 18.[employer] Allergies No known active allergies Medications * [...] Comments Blood Pressure 128/86 12/20/2019 4:33 PM PROTECTIVE SIGNAL REPAIRER Pulse 87 12/20/2019 4:33 PM PROTECTIVE SIGNAL REPAIRER Temperature 36.9 C (98.5 F) 12/20/2019 4:33 PM PROTECTIVE SIGNAL REPAIRER Respiratory Rate 16 12/20/2019 4:33 PM PROTECTIVE SIGNAL REPAIRER Oxygen Saturation 98% 12/20/2019 4:33 PM PROTECTIVE SIGNAL REPAIRER Inhaled Oxygen Concentration - - Weight 72.6 kg (160 lb) 12/20/2019 4:33 PM PROTECTIVE SIGNAL REPAIRER Height 185.4 cm (6' 1 ) 12/20/2019 4:33 PM PROTECTIVE SIGNAL REPAIRER Body Mass Index 21.11 12/20/2019 4:33 PM PROTECTIVE SIGNAL REPAIRER Plan of Treatment Not on file Care Teams Tear Down Man Relationship Specialty Start Date End Date Matthew Obando MD [address] [place] [address] PCP - General Family Medicine 12/20/19
--- OUTSIDE RECORDS SUMMARY | 2025-01-07 02:54 | XMS_ITS | Patient Health Summary ---
Author Organization [facility] [employer] Address [address] [place] [address] Care Team Providers Care Financial Compliance Manager Name Role Phone Matthew Obando MD Primary Care Provider [phone] Note from [facility],non-owned Affiliates and Associated Physician Practices is amultiple site organization consisting of ambulatory clinics and hospital sitesin [place], [place], [place] and [place]. This disclosure is being madepursuant to the Care Everywhere program and may not contain all information available regarding this patient. Last updated 18.[facility] [employer] Allergies No known active allergies Medications * [...] Comments Blood Pressure 128/86 12/20/2019 4:33 PM STOCK FEEDER Pulse 87 12/20/2019 4:33 PM STOCK FEEDER Temperature 36.9 C (98.5 F) 12/20/2019 4:33 PM STOCK FEEDER Respiratory Rate 16 12/20/2019 4:33 PM STOCK FEEDER Oxygen Saturation 98% 12/20/2019 4:33 PM STOCK FEEDER Inhaled Oxygen Concentration - - Weight 72.6 kg (160 lb) 12/20/2019 4:33 PM STOCK FEEDER Height 185.4 cm (6' 1 ) 12/20/2019 4:33 PM STOCK FEEDER Body Mass Index 21.11 12/20/2019 4:33 PM STOCK FEEDER Procedures * INFLUENZA A+B - POINT OF CARE (AMB)(Performed 12/20/2019) Performed for Upper respiratory tract infection, unspecified type * STREP A SCREEN - POINT OF CARE (AMB) STL(Performed 12/20/2019) Performed for Upper respiratory tract infection, unspecified type Results * INFLUENZA A+B - POINT OF CARE (AMB) (12/20/2019 4:47 PM STOCK FEEDER) Influenza A Antigen Rapid Negative Negative Influenza B Antigen Rapid Negative Negative Influenza Internal Control present NEGATIVE - POSITIVE Influenza Lot Number [id number] Influenza Expiration Date 09 29 2021 Other NASOPHARYNGEAL SWAB / Unknown 12/20/2019 4:47 PM STOCK FEEDER [place] APRN-[facility]TER[facility] - POINT OF [place] RE ORDERABLES * STREP A SCREEN - POINT OF CARE (AMB) STL (12/20/2019 4:46 PM STOCK FEEDER) Strep A Rapid POCT Negative Negative Strep A Internal Control Present Lot # [id number] Expiration Date 06 24 2021 Throat ENTIRE THROAT (SURFACE REGION OF NECK) / Unknown 12/20/2019 4:46 PM STOCK FEEDER [place] APRN-FLAVORING OIL FILTERER LAB - POINT OF [place] RE ORDERABLES Care Teams Financial Compliance Manager Relationship Specialty Start Date End Date Matthew Obando MD [address] [place] [address] PCP - General Family Medicine 12/20/19
--- OUTSIDE RECORDS SUMMARY | 2025-01-07 02:54 | XMS_ITS | Encounter Summary ---
Author Organization [facility] Address [address] [place] [address] Care Team Providers Care Paper Cup Machine Operator Name Role Phone Unavailable Primary Care Provider Unavailabl e Encounter Details Date Type Department Care Team (Late st Contact Info) Description 07/08/2004 Inpatient Historical HIS MRI DEPT Louis Alexis Jr., MD [address] [place] [address] Mira Torres MD NO ADDRESS ON FILE FERTILITY TESTING (Primary Dx) Social History Tobacco Use Types Packs/Day Years Used Date Smoking Tobacco: Never Assessed Comments Unknown Sex and Gender Information Value Date Recorded Sex Assigned at Not on file Legal Sex Female 5:14 AM SOLAR POWER INSTALLER Gender Identity Not on file Sexual Orientation Not on file documented as of this encounter Plan of Treatment Not on file documented as of this encounter Visit Diagnoses Diagnosis Fertility testing- Primary documented in this encounter
--- OUTSIDE RECORDS SUMMARY | 2025-01-07 02:54 | XMS_ITS | Referral Summary ---
Author Organization [facility] Address [address] [address] Care Team Providers Care Toll Collector Supervisor Name Role Phone Matthew Obando MD Primary Care Provider [phone] Allergies No known active allergies Medications ibuprofen [...] on file Legal Sex Female 7:47 PM DEVELOPMENT COORDINATOR Gender Identity Not on file Sexual Orientation [...] age 40, based on guidelines of the [place] [employer] (ACR Practice Parameter for the Performance of Screening and Diagnostic Mammography) and [place] [employer]. For women [...] Most Recently Relevant to Health Maintenance Insurance [employer] [place] [employer] [place] Care Teams Toll Collector Supervisor Relationship Specialty Start Date End Date Matthew Obando MD PCP - General 08/12/19
--- OUTSIDE RECORDS SUMMARY | 2025-01-07 02:54 | XMS_ITS | Clinical Summary ---
Author Organization [facility] Address [address] [address] Care Team Providers Care Musician Instrumental Name Role Phone Matthew Obando MD Primary Care Provider [phone] Allergies No known active allergies Medications ibuprofen [...] on file Legal Sex Female 7:47 PM RETINA SUBSPECIALIST Gender Identity Not on file Sexual Orientation [...] age 40, based on guidelines of the [employer] (ACR Practice Parameter for the Performance of Screening and Diagnostic Mammography) and [employer]. For women [...] Most Recently Relevant to Health Maintenance Insurance [facility] Care Teams Musician Instrumental Relationship Specialty Start Date End Date Matthew Obando MD PCP - General 08/12/19
--- OUTSIDE RECORDS SUMMARY | 2025-01-07 02:54 | XMS_ITS | Clinical Summary ---
Author Organization [facility] Address [address] Attn: Epic Prelude ADT [address] [place] [address] Care Team Providers Care Conveyor Weigher Operator Name Role Phone Unavailable Primary Care Provider Unavailabl e Social History Tobacco Use Types Packs/Day Years Used Date Smoking Tobacco: Never Assessed Comments Unknown Sex and Gender Information Value Date Recorded Sex Assigned at Not on file Legal Sex Female 5:14 AM CIPHER EXPERT Gender Identity Not on file Sexual Orientation [...]
--- OUTSIDE RECORDS SUMMARY | 2025-01-07 02:54 | XMS_ITS | Clinical Summary ---
Author Organization [facility] [employer] Address [address] [place] [address] Care Team Providers Care Vessel Manager Name Role Phone Matthew Obando MD Primary Care Provider Source Comments [facility] [employer],non-owned Affiliates and Associated Physician Practices is amultiple site organization consisting of ambulatory clinics and hospital sitesin [place], [place], [place] and [place]. This disclosure is being madepursuant to the Care Everywhere program and may not contain all information available regarding this patient. Last updated 18.[employer] Allergies No known active allergies Medications * [...] Comments Blood Pressure 128/86 12/20/2019 4:33 PM LAND DEVELOPMENT PROJECT MANAGER Pulse 87 12/20/2019 4:33 PM LAND DEVELOPMENT PROJECT MANAGER Temperature 36.9 C (98.5 F) 12/20/2019 4:33 PM LAND DEVELOPMENT PROJECT MANAGER Respiratory Rate 16 12/20/2019 4:33 PM LAND DEVELOPMENT PROJECT MANAGER Oxygen Saturation 98% 12/20/2019 4:33 PM LAND DEVELOPMENT PROJECT MANAGER Inhaled Oxygen Concentration - - Weight 72.6 kg (160 lb) 12/20/2019 4:33 PM LAND DEVELOPMENT PROJECT MANAGER Height 185.4 cm (6' 1 ) 12/20/2019 4:33 PM LAND DEVELOPMENT PROJECT MANAGER Body Mass Index 21.11 12/20/2019 4:33 PM LAND DEVELOPMENT PROJECT MANAGER Plan of Treatment Health Maintenance Due Date [...] age to complete this topic Care Teams Vessel Manager Relationship Specialty Start Date End Date Matthew Obando MD [address] [place] [address] PCP - General Family Medicine 12/20/19
== END 2025-01-07 04:07 | disposition left against medical advice (07) ==
PROVIDERS: PCP Family Medicine
DX: R11.0 Nausea (principal)
CPT/HCPCS: 99199